=== PATIENT | male | born 1970 | race Caucasian/White ===

== ENCOUNTER 2023-05-06 11:34 | Emergency (ER) | payer OTHER ==
--- OUTSIDE RECORDS SUMMARY | 2023-05-06 11:37 | XMS REPORT | Continuity of Care Document ---
Author Name Unknown Address [address] [facility] [address] [place] [address] [facility] thconnect Address [address] [facility] [place] [address] Care Team Providers Care Securities Research Analyst Name Role Phone BERNICE BURNETT Primary Care Physician UnavailDelfina Ulrich Attending Clinician Unavailable DR BERNICE BURNETT Attending Clinician Unavailable [phone] Attending Clinician Unavailable UCHE YOUNGER Attending Clinician Unavailable MD UCHE YOUNGER Attending Clinician Unav BEENA Jaffe Attending Clinician Unavailable JASON ROLLINS Attending Clinician Unavailable MD JASON ROLLINS Attending Clinician Unavaila DR BERNICE Hernandez Admitting Clinician Unavailable UCHE YOUNGER Admitting Clinician Unavailable MD UCHE YOUNGER Admitting Clinician Unav ailJASON Zaldivar Admitting Clinician Unavailable MD JASON ROLLINS Admitting Clinician Unavaila harshad Payers Payer Name Policy Type Policy Number Effective Date Expirati on Date Source [id number] [place] [id number] 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 Active 2019-05 00:00: [address] [facility] Preoperati ve examinatio n Preoperati ve examinatio n Disease Active 2019-05 00:00: [address] [facility] Pre-op evaluation Pre-op evaluation Disease Active 02-02 00:00: [address] [facility] Essential hypertensi on Essential hypertensi on Disease Active 02-02 00:00: [address] [facility] Class 3 severe obesity due to excess calories with serious comorbidit y and body mass index (BMI) of 45.0 to 49.9 in adult Class 3 severe obesity due to excess calories with serious comorbidit y and body mass index (BMI) of 45.0 to 49.9 in adult Disease Recurre nce 02-02 00:00: [address] [facility] [id number] Primary osteoarthr itis of left shoulder Problem Active [facility] [id number] Low vitamin D level Problem Active [facility] [id number] Primary osteoarthr itis, right shoulder Problem Active [facility] [id number] Tremor Problem Active [facility] [id number] Anxiety Problem Active [facility] [id number] Skin lesion of back Problem Active [facility] [id number] Body mass index [BMI] 50.0-59.9, adult Problem Active [facility] Allergies, Adverse Reactions, Alerts Allergy Name Allergy Type Status Severity Reaction(s) Onset Date Inactive Date Treating Clinician Comments Source Penicill ins Propensi ty to adverse reaction s to drug Active Rash 01-25 00:00: [address] [facility] PENICILL IN DA Active UNKNOWN UNKNOWN [facility] Family History Family Member Diagnosis Comments Start Date Stop Date Sour e Natural brother Hypertension [facility] Natural mother Diabetes [facility] Natural mother Hypertension [facility] Social History Social Habit Start Date Stop Date Quantity Comments Source History of tobacco use Snuff User [facility] History SDOH Alcohol Std Drinks [facility] History SDOH Alcohol Binge [facility] Alcohol intake 2020-04-14 00:00:00 2020-04-14 00:00:00 Current drinker of alcohol (finding) [facility] History SDOH Alcohol Frequency 2020-04-08 00:00:00 2020-04-08 00:00:[address] [facility] Tobacco use and exposure 2020-03-26 00:00:00 2020-03-26 00:00:00 Former smokeless tobacco user [facility] Sex Assigned At 1970 00:00:00 1970 00:00:[address] [facility] Smoking Status Start Date Stop Date Source Unknown if ever smoked [facility] Ex-smoker 2020-03-26 00:00:00 2020-03-26 00:00:00 [facility] Medications Ordered Medication Name Filled Medication Name Start Date Stop Date Current Medication? Ordering Clinician Indication Dosage Frequency Signature (SIG) Comments Components Source cholecalcif anneliese, vitamin D3, (Vitamin D3) 125 mcg (5,000 unit) tablet 2019-05 12:01: 28 Yes QD Take by mouth daily[facility] cholecalcif anneliese, vitamin D3, (Vitamin D3) 125 mcg (5,000 unit) tablet 2019-05 12:01: 28 Yes QD Take by mouth daily. [facility] ondansetron (ZOFRAN) 4 MG tablet 2019-05 00:00: 00 Yes 4mg Q6H Take 1 tablet (4 mg total) by mouth every 6 (six) hours as needed for nausea or vomiting. [facility] ondansetron (ZOFRAN) 4 MG tablet 2019-05 00:00: 00 Yes 4mg Q6H Take 1 tablet (4 mg total) by mouth every 6 (six) hours as needed for nausea or vomiting. [facility] amlodipine- valsartan (EXFORGE) 10-320 mg per tablet 2019-05 0 00:00: 00 Yes 1{tbl} QD Take 1 tablet by mouth daily. [facility] amlodipine- valsartan (EXFORGE) 10-320 mg per tablet 2019-05 0 00:00: 00 Yes 1{tbl} QD Take 1 tablet by mouth daily. [facility] Exforge Exforge Yes Delfina Franklin 1 tablet [facility] Exforge 10-320 MG Exforge 10-320 MG No 1{table t} QD Exforge 10-320 MG Exforge 10-320 MG Exforge 10-320 MG No 1{table t} QD Exforge 10-320 MG Exforge 10-320 MG Exforge 10-320 MG No 1{table t} QD Exforge 10-320 MG Bariatric Multivitami ns/Iron - Bariatric Multivitami ns/Iron - No Bariatric Multivitam ins/Iron - Ursodiol 300 MG Ursodiol 300 MG No 1{capsu le} QD Ursodiol 300 MG Vital Signs Vital Name Observation Time Observation Value Comments S ource height 2020-10-06 08:40:00 72 [in_i] [facility] weight 2020-10-06 08:40:00 251 [lb_av] Comm on [facility] temperature 2020-10-06 08:40:00 98.1 [degF] Com [facility] bmi 2020-10-06 08:40:00 34.04 kg/m2 [facility] oximetry 2020-10-06 08:40:00 99 % [facility] rate 2020-10-06 08:40:00 17 /min [facility] blood pressure systolic 2020-10-06 08:40:00 110 mm[Hg] [facility] blood pressure diastolic 2020-10-06 08:40:00 55 mm[Hg] [facility] height 2020-03-02 16:00:00 72 [in_i] [facility] n [facility] weight 2020-03-02 16:00:00 375.6 [lb_av] Co mmon [facility] temperature 2020-03-02 16:00:00 97.1 [degF] Com mon [facility] bmi 2020-03-02 16:00:00 50.93 kg/m2 Comm [facility] oximetry 2020-03-02 16:00:00 97 % [facility] respiratory rate 2020-03-02 16:00:00 16 /min [facility] blood pressure systolic 2020-03-02 16:00:00 160 mm[Hg] [facility] blood pressure diastolic 2020-03-02 16:00:00 71 mm[Hg] [facility] Plan of Care Planned Activity Planned Date Details Comments Source Future Scheduled Test 2022-05-11 06:16:22 COVID-19 VACCINE (#1) [code = COVID-19 VACCINE (#1)] [facility] Future Scheduled Test 2022-05-11 06:16:22 Hepatitis C screening (procedure) [code = 273914676] [facility] Future Scheduled Test 2022-05-11 06:16:22 COLONOSCOPY SCREENING [code = COLONOSCOPY SCREENING] [facility] Future Scheduled Test 2022-05-11 06:16:22 INFLUENZA VACCINE [code = INFLUENZA VACCINE] [facility] Future Scheduled Test 2022-05-11 06:16:22 SHINGLES VACCINES (1 of 2) [code = SHINGLES VACCINES (1 of 2)] [facility] Future Scheduled Test 2022-05-11 06:16:22 COVID-19 VACCINE (#1) [code = COVID-19 VACCINE (#1)] [facility] Future Scheduled Test 2022-05-11 06:16:22 Hepatitis C screening (procedure) [code = 622475067] [facility] Future Scheduled Test 2022-05-11 06:16:22 COLONOSCOPY SCREENING [code = COLONOSCOPY SCREENING] [facility] Future Scheduled Test 2022-05-11 06:16:22 INFLUENZA VACCINE [code = INFLUENZA VACCINE] [facility] Future Scheduled Test 2022-05-11 06:16:22 SHINGLES VACCINES (1 of 2) [code = SHINGLES VACCINES (1 of 2)] [facility] Encounters Start Date/Time End Date/Time Encounter Type Admission Type Attending [facility] Care Department Encounter ID Source 2022-11-14 11:50:00 Outpatient Delfina Richardson [facility] [id number] [facility] 2022-08-27 08:47:19 Outpatient BERNICE BURNETT [id number] [facility] [id number] [facility] 2021-06-22 13:02:15 Outpatient Delfina Richardson [facility] [id number] [facility] 2021-06-22 11:52:03 Outpatient Delfina Richardson [facility] [id number] [facility] 2021-06-22 11:36:55 Outpatient Delfina Richardson [facility] [id number] [facility] 2022-08-27 08:48:00 2022-08-28 09:38:00 Outpatient BERNICE LOMAX [id number] [facility] [id number] [facility] 2020-10-06 00:00:00 2020-10-06 00:00:00 PREV VISIT EST AGE 40-64 [facility] [id number] [facility] 2020-06-23 00:00:00 2020-06-23 00:00:00 (TEL) [facility] [id number] [facility] 2020-04-14 00:00:00 2020-04-14 00:00:00 Outpatient UCHE YOUNGER [facility] [id number] [facility] 2020-04-08 00:00:00 2020-04-09 00:00:00 Inpatient ERIC YOUNGERLE [facility] [id number] [facility] 2020-04-05 00:00:00 2020-04-05 00:00:00 Outpatient UCHE YOUNGER [facility] [id number] [facility] 2020-04-05 00:00:00 2020-04-05 00:00:00 Outpatient BEENA ROBERT [facility] [id number] [facility] 2020-03-24 00:00:00 2020-03-24 00:00:00 Outpatient UCHE YOUNGER [facility] [id number] [facility] 2020-03-24 00:00:00 2020-03-24 00:00:00 Outpatient UCHE YOUNGER [facility] [id number] [facility] 2020-03-15 00:00:00 2020-03-15 00:00:00 Outpatient JASON ROLLINS [facility] [id number] [facility] 2020-03-12 00:00:00 2020-03-12 00:00:00 Outpatient JASON ROLLINS [facility] [id number] [facility] 2020-03-02 00:00:00 2020-03-02 00:00:00 OFFICE VISIT EST PT LEVEL 3 [facility] [id number] [facility] 2020-02-26 00:00:00 2020-02-26 00:00:00 Outpatient UCHE YOUNGER [facility] [id number] [facility] 2020-02-23 00:00:00 2020-02-23 00:00:00 Outpatient UCHE YOUNGER [facility] [id number] [facility] 2020-02-03 00:00:00 2020-02-03 00:00:00 Outpatient BEENA ROBERT [facility] [id number] [facility] 2020-01-26 00:00:00 2020-01-26 00:00:00 Outpatient UCHE YOUNGER [facility] [id number] [facility] 2020-01-08 17:12:00 2020-01-08 17:12:[address] [facility] [id number] [facility] 2020-01-08 16:20:00 2020-01-08 16:20:00 [facility] [id number] [facility] Results Test Description Test Time Test Comments Results Result Co mments Source [facility] RNA [Presence] in Respiratory specimen by LAURA with probe [id number] 01:18:28* Test Item Value Reference Range Interpretation Comme nts SARS-CoV-2 (COVID-19) RNA [Presence] in Respiratory specimen by LAURA with probe detection (test code = 23456-8) Not detected Not-Detected [facility]
[2023-05-06] MEDS ORDERED: HYDROCODONE/APAP 5/325 MG TAB ONE ×2 (13:48→14:23)
--- NOTE | 2023-05-06 13:55 | RAD REPORT ---
EXAM DESCRIPTION: CT - Thorax Wo Con CLINICAL HISTORY: Chest pain Chest pain;Rib Pain - Left;Trauma COMPARISON: <Comparisons> FINDINGS: The lungs are clear. No pleural thickening or pleural effusion. No pneumothorax. No axillary, mediastinal or hilar adenopathy. No fracture appreciated. Cholelithiasis suspected. Punctate right renal calculus likely present. All CT scans are performed using dose optimization technique as appropriate and may include automated exposure control or mA/KV adjustment according to patient size. IMPRESSION: No acute intrathoracic finding seen.
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
[2023-05-06 16:55] VITALS: TEMP 98.6
[2023-05-06 16:57] VITALS: BP 159/87; O2SAT 97
== END 2023-05-06 16:26 | disposition home or self-care (01) ==
LOC: ER 11:34
DX: S20.212A Contusion of left front wall of thorax, initial encounter (principal); I10 Essential (primary) hypertension; F41.9 Anxiety disorder, unspecified; F17.220 Nicotine dependence, chewing tobacco, uncomplicated; Z88.0 Allergy status to penicillin
CPT/HCPCS: 71250; 99283